=== PATIENT | female | born 1940 | race Caucasian/White ===

== ENCOUNTER → 2018-09-30 | Outpatient (CLI) | payer MEDICARE ==
[~2018-09-30] MED LIST: FENTANYL CITRATE/PF 100MCG/2 ML INJ ONE; GELATIN SPONGE 12-7MM ONE; LIDOCAINE HCL 1% LOCAL INJ 20 ML VIAL ONE; LOVASTATIN20 MG PO; MIDAZOLAM HCL 2 MG/2 ML VIAL ONE; PAROXETINE HCL20 MG PO; XANAX1 MG PO
[2018-09-30 09:23] LABS: INR 0.92; PROTHROMBIN TIME 12.9 seconds (11.9-14.5)
[2018-09-30 09:24] LABS: PARTIAL THROMBOPLASTIN TIME 31.4 seconds (23.8-35.5)
--- NOTE | 2018-10-01 09:47 | Diagnostic Imaging Report ---
EXAM: CT Chest without contrast INDICATION: Pulmonary nodules. COMPARISON: Recent outside hospital CT Abdomen/Pelvis renal protocol reportedly from 09/2018 was not available for review at the time of this dictation. TECHNIQUE: Chest was scanned utilizing a multidetector helical scanner from the lung apex through the level of the adrenal glands without administration of IV contrast. Coronal and sagittal reformations were obtained. Routine protocol was performed. RADIATION DOSE: Total DLP: 545.1 mGy*cm Dose modulation, iterative reconstruction, and/or weight based adjustment of the mA/kV was utilized to reduce the radiation dose to as low as reasonably achievable. COMPLICATIONS: None FINDINGS: LINES/ TUBES: None. LUNGS AND AIRWAYS: The central airways are patent. There is biapical pleural-parenchymal opacity, consistent with prior granulomatous disease. There are numerous bilateral pulmonary nodules which are predominately lower lung and peripheral predominant. The largest include a 3.7 cm left lower lobe mass on series 3, image 84; a 1.8 cm nodule in the lingula on image 71, a 1.5 cm left lower lobe nodule on image 64, a 0.7 cm nodule in the right upper lobe on image 48, and a 1.7 cm nodule in the right lower lobe on image 96. Mixed solid and groundglass nodular opacities in the right lower lobe, for example measuring up to 1.5 cm on series 3, image 65. PLEURA: The pleural spaces are clear. HEART AND MEDIASTINUM: The thyroid gland is normal. Mildly enlarged paratracheal lymph node measuring up to 1.1 cm on series 2, image 49 and mildly prominent 0.7 cm AP window lymph node on image 44. Mild cardiomegaly. No pericardial effusion. UPPER ABDOMEN: Limited non-contrast views of the upper abdomen. There are 2 exophytic left renal lesions, measuring up to 1.2 cm (series 2, image 117; 16 HU) in the upper pole laterally, as well as a 1 cm exophytic posterior mid pole lesion (image 122; 25 HU). Right hepatic lobe cysts. Calcified hepatic granuloma. BONES: No acute osseous abnormality. No suspicious lytic or blastic lesions SOFT TISSUES: Unremarkable. IMPRESSION: Multiple bilateral pulmonary nodules and left lower lobe pulmonary mass. Findings are highly suspicious for malignancy, whether metastatic disease or a primarily multifocal lung malignancy. Recommend biopsy for further evaluation. Mildly enlarged paratracheal lymph node which may be metastatic or reactive. Two left renal soft tissue lesions are indeterminate. Please correlate with outside hospital renal protocol CT. Note is made of planned renal mass biopsy. Signed by: Dr. Saritha Bocanegra MD on 10/01/2018 9:43 AM
== END ==
LOC: CT 08:20
PROVIDERS: ATTEND Urology
DX: D30.00 Benign neoplasm of unspecified kidney (principal); R91.8 Other nonspecific abnormal finding of lung field
CPT/HCPCS: 10009; 36415; 50200; 71250; 85049; 85610; 85730; 88172; 88173; 88305; J2001; J2250; 88112; 99152; 99153

== ENCOUNTER → 2018-10-07 | Outpatient (CLI) | payer MEDICARE ==
--- NOTE | 2018-10-07 11:17 | Diagnostic Imaging Report ---
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 The patient's heart rate and pulse oximetry were continuously monitored by the interventional radiology nurse. Blood pressure was monitored at 5 minute intervals. Total sedation time: 40 minutes Additional Medications: Lidocaine 1% for local anesthesia Estimated blood loss: Minimal Blood products administered: None Specimens: Core biopsy specimens x5 Implants: None Complications: No immediate Condition at completion: Stable Disposition: Radiology holding DISCUSSION: Informed consent was obtained and documented in the medical record after discussion of risks and benefits. The patient was placed in the prone position on the CT couch. A marker grid were placed over the right and left hemithorax. Imaged CT evaluation of the chest was performed, confirming a suitable percutaneous approach to the left lower lobe pulmonary nodule. The overlying skin was prepped and draped in the standard sterile fashion. 1% lidocaine was infiltrated into the skin and subcutaneous tissues for local anesthesia. Then, under intermittent CT guidance, a 16-gauge needle guide was advanced to the periphery of the nodule. Subsequently, an 18-gauge, 2 cm throw core biopsy apparatus was advanced coaxially through the needle guide and deployed, with limited CT evaluation confirming position of the trough of the biopsy needle within the nodule. A core specimen was then obtained and submitted to on-site pathology personnel by touch prep, with confirmation of intralesional location. An additional 4 core biopsy specimens were obtained and placed in formalin for histologic analysis. At the conclusion of sampling, 3 cc of autologous blood were injected through the needle guide as it was removed, and a sterile, occlusive dressing was applied. Limited postprocedure CT showed no pneumothorax and a minimal amount of perilesional hemorrhage. The patient tolerated the procedure well without immediate complication. FINDINGS: Bilateral pulmonary nodules. IMPRESSION: Successful CT-guided core biopsy of a left lower lobe pulmonary nodule without immediate complication. Serial chest radiographs will be obtained to assess for development of delayed iatrogenic pneumothorax. Signed by: Dr. Demetri Robb M.D. on 10/07/2018 11:14 AM
--- NOTE | 2018-10-07 11:40 | Diagnostic Imaging Report ---
Examination: Single AP view of the chest. COMPARISON: CT chest 09/30/2018 INDICATION: Status post left lung biopsy DISCUSSION: The lungs are well-inflated. No airspace consolidation or pneumothorax. Cardiomediastinal contour and pulmonary vasculature are within normal limits for portable, AP technique. No acute osseous abnormality. Multiple surgical clips along the left hemidiaphragm and left upper quadrant partially visualized. IMPRESSION: No pneumothorax status post left lung biopsy. Signed by: Dr. Demetri Robb M.D. on 10/07/2018 11:37 AM
--- NOTE | 2018-10-07 14:01 | Diagnostic Imaging Report ---
Examination: Single AP view of the chest. COMPARISON: 10/07/2018 at 1111 hours INDICATION: Post left lung biopsy DISCUSSION: See impression IMPRESSION: No left pneumothorax status post percutaneous biopsy. Bilateral pulmonary nodules described on CT scan of the chest 09/30/2018 are not readily identified by plain film. Signed by: Dr. Demetri Robb M.D. on 10/07/2018 1:57 PM
== END ==
LOC: CT 07:51
PROVIDERS: ATTEND Urology
DX: D30.00 Benign neoplasm of unspecified kidney (principal); R91.8 Other nonspecific abnormal finding of lung field; K57.30 Diverticulosis of large intestine without perforation or abscess without bleeding; K76.0 Fatty (change of) liver, not elsewhere classified; K43.9 Ventral hernia without obstruction or gangrene
CPT/HCPCS: 32405; 71045; 77012; 88172; 88173; 88305; J2001; J2250; 99152; 99153

== ENCOUNTER → 2018-11-17 | Outpatient (CLI) | payer MEDICARE ==
[~2018-11-17] MED LIST changes: -GELATIN SPONGE 12-7MM ONE; -LIDOCAINE HCL 1% LOCAL INJ 20 ML VIAL ONE
[2018-11-17 08:51] LABS: INR 0.91; PROTHROMBIN TIME 12.7 seconds (11.9-14.5)
[2018-11-17 08:52] LABS: PARTIAL THROMBOPLASTIN TIME 38.3 seconds (23.8-35.5)
--- NOTE | 2018-11-17 12:27 | Diagnostic Imaging Report ---
PROCEDURE: Ultrasound-guided focal left renal mass biopsy Procedural Personnel Attending physician(s): Vince Harrison MD Pre-procedure diagnosis: Left renal mass Post-procedure diagnosis: Same Indication: Left renal mass, prior biopsy inconclusive Previous biopsy of same target (QCDR): Yes- repeat biopsy due to sample inadequacy from prior biopsy at this institution Additional clinical history: None Complications: No immediate complications. IMPRESSION: Ultrasound-guided biopsy of left renal exophytic mass. Plan: Specimen(s) sent for evaluation. PROCEDURE SUMMARY: - Percutaneous US-guided core needle and fine needle aspiration biopsy biopsy - Additional procedure(s): None PROCEDURE DETAILS: Pre-procedure Reference imaging for biopsy target: CT Consent: Informed consent for the procedure including risks, benefits and alternatives was obtained and time-out was performed prior to the procedure. Preparation: The site was prepared and draped using maximal sterile barrier technique including cutaneous antisepsis. Anesthesia/sedation Level of anesthesia/sedation: Moderate sedation (conscious sedation) Anesthesia/sedation administered by: Independent trained observer under attending supervision with continuous monitoring of the patient?s level of consciousness and physiologic status Total intra-service sedation time (minutes): 30 Imaging prior to biopsy The patient was positioned prone. Initial ultrasound was performed. Biopsy target: - Maximal diameter (cm): 3 - Location: left kidney, exophytic mass Other findings: None Biopsy Local anesthesia was administered. Under US guidance, the biopsy needle was advanced to the target and biopsy was performed. Coaxial needle: 17 gauge Core needle biopsy device: 18 gauge [email or web address] evolution Core needle size: 18g x 15cm Number of core specimens: 2 Fine needle aspiration device: Chiba needle Fine needle size: 22g x 15cm Number of FNA specimens: 4 On-site biopsy touch preparation: No Additional sampling recommendations: None Preliminary assessment of sample adequacy: Adequate Needle removal The biopsy needle was removed and a sterile dressing was applied. Tract embolization: Gelfoam slurry Imaging following biopsy Immediate post-biopsy ultrasound was performed. Post-biopsy imaging findings: No hematoma. Additional Details Additional description of procedure: None Equipment details: None Specimens removed: Biopsy samples as detailed above Estimated blood loss (mL): Less than 10 Standardized report: [id number] Attestation Signer name: Vince Harrison MD I attest that I was present for the entire procedure. I reviewed the stored images and agree with the report as written. Signed by: Vince Harrison MD on 11/17/2018 12:24 PM
== END ==
LOC: US 07:27
PROVIDERS: ATTEND Urology
DX: D30.00 Benign neoplasm of unspecified kidney (principal); R91.8 Other nonspecific abnormal finding of lung field
CPT/HCPCS: 10005; 36415; 50200; 85049; 85610; 85730; 88112; 88305; J2250; 88172; 88173; 99152; 99153; J3010

== ENCOUNTER 2019-04-12 09:52 | Observation (INO) | payer MEDICARE ==
[~2019-04-12] VITALS: Ht 160 cm; Wt 88.5 kg
[~2019-04-12 09:52] MED LIST changes: -FENTANYL CITRATE/PF 100MCG/2 ML INJ ONE; -MIDAZOLAM HCL 2 MG/2 ML VIAL ONE
--- OUTSIDE RECORDS SUMMARY | 2019-04-12 09:55 | XMS REPORT ---
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 Allergies, Adverse Reactions, Alerts Allergy Name Allergy Type Status Severity Reaction(s) Onset Date Inactive Date Treating Clinician Comments nitrofurantoin DA Active SV 2018-02-15 00:00:00 nitrofurantoin DA Active MO 2017-03-18 00:00:00 Medications This patient has no known medications. Results Test Description Test Time Test Comments Text Results Atomic Results Result Comments - PET/CT TUMOR SK MIDTH 2018-12-22 15:23:00 FAX: Dewayne Belle MD [phone] [place]: St: PRE Name: DEIDRE YI [facility] : 1940 Age/S: 78/F Gina Castro Unit #: [id number] Loc: [place] [address] Phys: Dewayne Belle MD Acct: [id number] Dis Date: Status: PRE CLI PHONE #: [phone] Exam Date: 12/22/2018 1130 FAX #: [phone] Reason: C90.30 EXAMS: CPT CODE: [id number] PET/CT TUMOR SK BS MIDTH 86243 HISTORY: C90.30. COMPARISON: CT abdomen and pelvis from February 15, [address] chest from May 14, 2016 and January 21, 2016. PET/CT SCAN: 11.6 mCi of FDG administered. Images obtained from the skull base to the upper thighs 1 hour postinjection. Blood glucose level=87 mg/dL. HEAD AND NECK: Intense uptake within the brain parenchyma limited evaluation. Physiologic pharyngeal uptake. CHEST: Multiple stable bibasal lung nodules measuring up to 2 cm with SUV uptake ranging up to 1.8 are not suspicious. These were present going back to examination of January 2016. No chest wall uptake. No breast uptake. ABDOMEN: No liver or adrenal uptake. No pancreatic or splenic uptake. Excretion from both kidneys. No abnormal uptake. 1 cm lesion within the medial left upper pole without abnormal uptake. No bowel uptake. Left lateral spigelian hernia with noted again. Minimal excretion into the bowel. PELVIS: No pelvic pathologic adenopathy. Excretion into the urinary bladder. Excretion into the bowel. MUSCULOSKELETAL: No abnormal uptake. IMPRESSION: No abnormal uptake documented. at 1523 Reported and signed by: Greg Doss M.D. CC: Dewayne Belle MD Technologist: NEHA LOTT Trnscrd Date/Time/By: 12/22/2018 (6043) : By: [email or web address] Orig Print D/T: S: 12/22/2018 (0720) PAGE 1 Signed Report BIOPSY RENAL 2018-11-17 12:20:00 [place] [address] Patient Name: DEIRDE YI MR #: [id number] : 1940 Age/Sex: 78/F Req #: [id number] Adm Physician: Ordered by: ANNEMARIE SAINI MD Report #: [id number] Location: US Room/Bed: Procedure: [id number] IR/BIOPSY RENAL Exam Date: 11/17/18 Exam Time: 923 REPORT STATUS: Signed PROCEDURE: Ultrasound-guided focal left renal mass biopsy Procedural Personnel Attending physician(s): Chitra Velasquez MD Pre-procedure diagnosis: Left renal mass Post-procedure diagnosis: Same Indication: Left renal mass, prior biopsy inconclusive Previous biopsy of same target (QCDR): Yes- repeat biopsy due to sample inadequacy from prior biopsy at this institution Additional clinical history: None Complications: No immediate complications. IMPRESSION: Ultrasound-guided biopsy of left renal exophytic mass. Plan: Specimen(s) sent for evaluation. PROCEDURE SUMMARY: - Percutaneous US-guided core needle and fine needle aspiration biopsy biopsy - Additional procedure(s): None PROCEDURE DETAILS: Pre-procedure Reference imaging for biopsy target: CT Consent: Informed consent for the procedure including risks, benefits and alternatives was obtained and time-out was performed prior to the procedure. Preparation: The site was prepared and draped using maximal sterile barrier technique including cutaneous antisepsis. Anesthesia/sedation Level of anesthesia/sedation: Moderate sedation (conscious sedation) Anesthesia/sedation administered by: Independent trained observer under attending supervision with continuous monitoring of the patient?s level of consciousness and physiologic status Total intra-service sedation time (minutes): 30 Imaging prior to biopsy The patient was positioned prone. Initial ultrasound was performed. Biopsy target: - Maximal diameter (cm): 3 - Location: left kidney, exophytic mass Other findings: None Biopsy Local anesthesia was administered. Under US guidance, the biopsy needle was advanced to the target and biopsy was performed. Coaxial needle: 17 gauge Core needle biopsy device: 18 gauge Oviceversa Core needle size: 18g x 15cm Number of core specimens: 2 Fine needle aspiration device: Chiba needle Fine needle size: 22g x 15cm Number of FNA specimens: 4 On-site biopsy touch preparation: No Additional sampling recommendations: None Preliminary assessment of sample adequacy: Adequate Needle removal The biopsy needle was removed and a sterile dressing was applied. Tract embolization: Gelfoam slurry Imaging following biopsy Immediate post-biopsy ultrasound was performed. Post-biopsy imaging findings: No hematoma. Additional Details Additional description of procedure: None Equipment details: None Specimens removed: Biopsy samples as detailed above Estimated blood loss (mL): Less than 10 Standardized report: [id number] Attestation Signer name: Chitra Velasquez MD I attest that I was present for the entire procedure. I reviewed the stored images and agree with the report as written. Signed by: Chitra Velasquez MD on 11/17/2018 12:24 PM Dictated By: CHITRA VELASQUEZ MD 1224 Transcribed By: CASEY on 11/17/18 1224 COPY TO: ANNEMARIE SAINI MD CHEST SINGLE (NOT PORTABLE) 2018-10-07 13:56:00 [place] [address] Patient Name: DEIDRE YI MR #: [id number] : 1940 Age/Sex: 78/F Req #: [id number] Adm Physician: Ordered by: PERRI GUNN MD Report #: [id number] Location: CT Room/Bed: Procedure: [id number] DX/CHEST SINGLE (NOT PORTABLE) Exam Date: 10/07/18 Exam Time: 1030 REPORT STATUS: Signed Examination: Single AP view of the chest. COMPARISON: 10/07/2018 at 1111 hours INDICATION: Post left lung biopsy DISCUSSION: See impression IMPRESSION: No left pneumothorax status post percutaneous biopsy. Bilateral pulmonary nodules described on CT scan of the chest 09/30/2018 are not readily identified by plain film. Signed by: Dr. Perri Gunn M.D. on 10/07/2018 1:57 PM Dictated By: PERRI GUNN MD 6813 Transcribed By: CASEY on 10/07/18 8427 COPY TO: PERRI GUNN MD CHEST SINGLE (NOT PORTABLE) 2018-10-07 11:35:00 [place] [address] Patient Name: DEIDRE YI MR #: [id number] : 1940 Age/Sex: 78/F Req #: [id number] Adm Physician: Ordered by: PERRI GUNN MD Report #: [id number] Location: CT Room/Bed: Procedure: [id number] DX/CHEST SINGLE (NOT PORTABLE) Exam Date: 10/07/18 Exam Time: 1115 REPORT STATUS: Signed Examination: Single AP view of the chest. COMPARISON: CT chest 09/30/2018 INDICATION: Status post left lung biopsy DISCUSSION: The lungs are well-inflated. No airspace consolidation or pneumothorax. Cardiomediastinal contour and pulmonary vasculature are within normal limits for portable, AP technique. No acute osseous abnormality. Multiple surgical clips along the left hemidiaphragm and left upper quadrant partially visualized. IMPRESSION: No pneumothorax status post left lung biopsy. Signed by: Dr. Perri Gunn M.D. on 10/07/2018 11:37 AM Dictated By: PERRI GUNN MD 1137 Transcribed By: CASEY on 10/07/18 1137 COPY TO: PERRI GUNN MD MOD SEDATE ADD 15 MIN<5YRS 2018-10-07 11:09:00 [place] [id number] [place] [id number] Patient Name: DEIDRE YI MR #: [id number] : 1940 Age/Sex: 78/F Req #: [id number] Adm Physician: Ordered by: ANNEMARIE SAINI MD Report #: [id number] Location: CT Room/Bed: Procedure: [id number] CT/MOD SEDATE ADD 15 MIN<5YRS Exam Date: 10/07/18 Exam Time: 955 REPORT STATUS: Signed Date and Time: 10/07/2018 Procedure: CT-guided core biopsy of a left lower lobe pulmonary nodule lowerator operator: Dr. Gunn Pre-operative diagnosis: Bilateral pulmonary nodules Post-operative diagnosis: Bilateral pulmonary nodules Conscious Sedation: Versed 1 mg and Fentanyl 50 mcg. The patient's heart rate and pulse oximetry were continuously monitored by the interventional radiology nurse. Blood pressure was monitored at 5 minute intervals. Total sedation time: 40 minutes Additional Medications: Lidocaine 1% for local anesthesia Estimated blood loss: Minimal Blood products administered: None Specimens: Core biopsy specimens x5 Implants: None Complications: No immediate Condition at completion: Stable Disposition: Radiology holding DISCUSSION: Informed consent was obtained and documented in the medical record after discussion of risks and benefits. The patient was placed in the prone position on the CT couch. A marker grid were placed over the right and left hemithorax. Imaged CT evaluation of the chest was performed, confirming a suitable percutaneous approach to the left lower lobe pulmonary nodule. The overlying skin was prepped and draped in the standard sterile fashion. 1% lidocaine was infiltrated into the skin and subcutaneous tissues for local anesthesia. Then, under intermittent CT guidance, a 16-gauge needle guide was advanced to the periphery of the nodule. Subsequently, an 18-gauge, 2 cm throw core biopsy apparatus was advanced coaxially through the needle guide and deployed, with limited CT evaluation confirming position of the trough of the biopsy needle within the nodule. A core specimen was then obtained and submitted to on-site pathology personnel by touch prep, with confirmation of intralesional location. An additional 4 core biopsy specimens were obtained and placed in formalin for histologic analysis. At the conclusion of sampling, 3 cc of autologous blood were injected through the needle guide as it was removed, and a sterile, occlusive dressing was applied. Limited postprocedure CT showed no pneumothorax and a minimal amount of perilesional hemorrhage. The patient tolerated the procedure well without immediate complication. FINDINGS: Bilateral pulmonary nodules. IMPRESSION: Successful CT- guided core biopsy of a left lower lobe pulmonary nodule without immediate complication. Serial chest radiographs will be obtained to assess for development of delayed iatrogenic pneumothorax. Signed by: Dr. Perri Gunn M.D. on 10/07/2018 11:14 AM Dictated By: PERRI GUNN MD 1114 Transcribed By: CASEY on 10/07/18 1114 COPY TO: ANNEMARIE SAINI MD, MD SEDATE INITIAL > 5 YRS 2018-10-07 11:09:00 [place] [address] Patient Name: DEIDRE YI MR #: [id number] : 1940 Age/Sex: 78/F Req #: [id number] Adm Physician: Ordered by: ANNEMARIE SAINI MD Report #: [id number] Location: [place] Room/Bed: Procedure: [id number] CT/ SEDATE INITIAL > 5 YRS Exam Date: 10/07/18 Exam Time: 939 REPORT STATUS: Signed Date and Time: 10/07/2018 Procedure: CT-guided core biopsy of a left lower lobe pulmonary nodule lowerator operator: Dr. Gunn Pre-operative diagnosis: Bilateral pulmonary nodules Post-operative diagnosis: Bilateral pulmonary nodules Conscious Sedation: Versed 1 mg and Fentanyl 50 mcg. The patient's heart rate and pulse oximetry were continuously monitored by the interventional radiology nurse. Blood pressure was monitored at 5 minute intervals. Total sedation time: 40 minutes Additional Medications: Lidocaine 1% for local anesthesia Estimated blood loss: Minimal Blood products administered: None Specimens: Core biopsy specimens x5 Implants: None Complications: No immediate Condition at completion: Stable Disposition: Radiology holding DISCUSSION: Informed consent was obtained and documented in the medical record after discussion of risks and benefits. The patient was placed in the prone position on the CT couch. A marker grid were placed over the right and left hemithorax. Imaged CT evaluation of the chest was performed, confirming a suitable percutaneous approach to the left lower lobe pulmonary nodule. The overlying skin was prepped and draped in the standard sterile fashion. 1% lidocaine was infiltrated into the skin and subcutaneous tissues for local anesthesia. Then, under intermittent CT guidance, a 16-gauge needle guide was advanced to the periphery of the nodule. Subsequently, an 18-gauge, 2 cm throw core biopsy apparatus was advanced coaxially through the needle guide and deployed, with limited CT evaluation confirming position of the trough of the biopsy needle within the nodule. A core specimen was then obtained and submitted to on-site pathology personnel by touch prep, with confirmation of intralesional location. An additional 4 core biopsy specimens were obtained and placed in formalin for histologic analysis. At the conclusion of sampling, 3 cc of autologous blood were injected through the needle guide as it was removed, and a sterile, occlusive dressing was applied. Limited postprocedure CT showed no pneumothorax and a minimal amount of perilesional hemorrhage. The patient tolerated the procedure well without immediate complication. FINDINGS: Bilateral pulmonary nodules. IMPRESSION: Successful CT- guided core biopsy of a left lower lobe pulmonary nodule without immediate complication. Serial chest radiographs will be obtained to assess for development of delayed iatrogenic pneumothorax. Signed by: Dr. Perri Gunn M.D. on 10/07/2018 11:14 AM Dictated By: PERRI GUNN MD 13 Transcribed By: CASEY on 10/07/181113 COPY TO: ANNEMARIE SAINI MD CT GUIDED BIOPSY/ASPIR/INJ/VICKIE 2018-10-07 11:09:00 [place] [address] Patient Name: DEIDRE YI MR #: [id number] : 1940 Age/Sex: 78/F Req #: [id number] Adm Physician: Ordered by: ANNEMARIE SAINI MD Report #: [id number] Location: CT Room/Bed: Procedure: CT/CT GUIDED BIOPSY/ASPIR/INJ/VICKIE Exam Date: 10/07/18 Exam Time: 929 REPORT STATUS: Signed Date and Time: 10/07/2018 Procedure: CT-guided core biopsy of a left lower lobe pulmonary nodule lowerator operator: Dr. Gunn Pre-operative diagnosis: Bilateral pulmonary nodules Post-operative diagnosis: Bilateral pulmonary nodules Conscious Sedation: Versed 1 mg and Fentanyl 50 mcg. The patient's heart rate and pulse oximetry were continuously monitored by the interventional radiology nurse. Blood pressure was monitored at 5 minute intervals. Total sedation time: 40 minutes Additional Medications: Lidocaine 1% for local anesthesia Estimated blood loss: Minimal Blood products administered: None Specimens: Core biopsy specimens x5 Implants: None Complications: No immediate Condition at completion: Stable Disposition: Radiology holding DISCUSSION: Informed consent was obtained and documented in the medical record after discussion of risks and benefits. The patient was placed in the prone position on the CT couch. A marker grid were placed over the right and left hemithorax. Imaged CT evaluation of the chest was performed, confirming a suitable percutaneous approach to the left lower lobe pulmonary nodule. The overlying skin was prepped and draped in the standard sterile fashion. 1% lidocaine was infiltrated into the skin and subcutaneous tissues for local anesthesia. Then, under intermittent CT guidance, a 16-gauge needle guide was advanced to the periphery of the nodule. Subsequently, an 18-gauge, 2 cm throw core biopsy apparatus was advanced coaxially through the needle guide and deployed, with limited CT evaluation confirming position of the trough of the biopsy needle within the nodule. A core specimen was then obtained and submitted to on-site pathology personnel by touch prep, with confirmation of intralesional location. An additional 4 core biopsy specimens were obtained and placed in formalin for histologic analysis. At the conclusion of sampling, 3 cc of autologous blood were injected through the needle guide as it was removed, and a sterile, occlusive dressing was applied. Limited postprocedure CT showed no pneumothorax and a minimal amount of perilesional hemorrhage. The patient tolerated the procedure well without immediate complication. FINDINGS: Bilateral pulmonary nodules. IMPRESSION: Successful CT- guided core biopsy of a left lower lobe pulmonary nodule without immediate com plication. Serial chest radiographs will be obtained to assess for development of delayed iatrogenic pneumothorax. Signed by: Dr. Perri Gunn M.D. on 10/07/2018 11:14 AM Dictated By: PERRI GUNN MD 1114 Transcribed By: CASEY on 10/07/18 1114 COPY TO: ANNEMARIE SAINI MD BIOPSY LUNG 2018-10-07 11:09:00 [place] [address] Patient Name: DEIDRE YI MR #: [id number] : 1940 Age/Sex: 78/F Req #: [id number] Adm Physician: Ordered by: ANNEMARIE SAINI MD Report #: [id number] Location: CT Room/Bed: Procedure: [id number] IR/BIOPSY LUNG Exam Date: 10/07/18 Exam Time: 929 REPORT STATUS: Signed Date and Time: 10/07/2018 Procedure: CT-guided core biopsy of a left lower lobe pulmonary nodule lowerator operator: Dr. Gunn Pre- operative diagnosis: Bilateral pulmonary nodules Post-operative diagnosis: Bilateral pulmonary nodules Conscious Sedation: Versed 1 mg and Fentanyl 50 mcg. The patient's heart rate and pulse oximetry were continuously monitored by the interventional radiology nurse. Blood pressure was monitored at 5 minute intervals. Total sedation time: 40 minutes Additional Medications: Lidocaine 1% for local anesthesia Estimated blood loss: Minimal Blood products administered: None Specimens: Core biopsy specimens x5 Implants: None Complications: No immediate Condition at completion: Stable Disposition: Radiology holding DISCUSSION: Informed consent was obtained and documented in the medical record after discussion of risks and benefits. The patient was placed in the prone position on the CT couch. A marker grid were placed over the right and left hemithorax. Imaged CT evaluati on of the chest was performed, confirming a suitable percutaneous approach to the left lower lobe pulmonary nodule. The overlying skin was prepped and draped in the standard sterile fashion. 1% lidocaine was infiltrated into the skin and subcutaneous tissues for local anesthesia. Then, under intermittent CT guidance, a 16-gauge needle guide was advanced to the periphery of the nodule. Subsequently, an 18-gauge, 2 cm throw core biopsy apparatus was advanced coaxially through the needle guide and deployed, with limited CT evaluation confirming position of the trough of the biopsy needle within the nodule. A core specimen was then obtained and submitted to on-site pathology personnel by touch prep, with confirmation of intralesional location. An additional 4 core biopsy specimens were obtained and placed in formalin for histologic analysis. At the conclusion of sampling, 3 cc of autologous blood were injected through the needle guide as it was removed, and a sterile, occlusive dressing was applied. Limited postprocedure CT showed no pneumothorax and a minimal amount of perilesional hemorrhage. The patient tolerated the procedure well without immediate complication. FINDINGS: Bilateral pulmonary nodules. IMPRESSION: Successful CT- guided core biopsy of a left lower lobe pulmonary nodule without immediate complication. Serial chest radiographs will be obtained to assess for development of delayed iatrogenic pneumothorax. Signed by: Dr. Perri Gunn M.D. on 10/07/2018 11:14 AM Dictated By: PERRI GUNN MD El ectronically Signed By: PERRI GUNN MD on 10/07/18 1114 Transcribed By: CASEY on 10/07/18 1114 COPY TO: ANNEMARIE SAINI MD CT CHEST WO 2018-09-30 15:17:00 [place] [address] Patient Name: DEIDRE YI MR #: [id number] : 1940 Age/Sex: 78/F Req #: [id number] Adm Physician: Ordered by: ANNEMARIE SAINI MD Report #: [id number] Location: CT Room/Bed: Procedure: [id number] CT/CT CHEST WO Exam Date: 09/30/18 Exam Time: 1100 REPORT STATUS: Signed EXAM: CT Chest without contrast INDICATION: Pulmonary no dules. COMPARISON: Recent outside hospital CT Abdomen/Pelvis renal protocol reportedly from 09/2018 was not available for review at the time of this dictation. TECHNIQUE: Chest was scanned utilizing a multidetector helical scanner from the lung apex through the level of the adrenal glands without administration of IV contrast. Coronal and sagittal reformations were obtained. Routine protocol was performed. RADIATION DOSE: Total DLP: 545.1 mGy*cm Dose modulation, iterative reconstruction, and/or weight based adjustment of the mA/kV was utilized to reduce the radiation dose to as low as reasonably achievable. COMPLICATIONS: None FINDINGS: LINES/ TUBES: None. LUNGS AND AIRWAYS: The central airways are patent. There is biapical pleural-parenchymal opacity, consistent with prior granulomatous disease. There are numerous bilateral pulmonary nodules which are predominately lower lung and peripheral predominant. The largest include a 3.7 cm left lower lobe mass on series 3, image 84; a 1.8 cm nodule in the lingula on image 71, a 1.5 cm left lower lobe nodule on image 64, a 0.7 cm nodule in the right upper lobe on image 48, and a 1.7 cm nodule in the right lower lobe on image 96. Mixed solid and groundglass nodular opacities in the right lower lobe, for example measuring up to 1.5 cm on series 3, image 65. PLEURA: The pleural spaces are clear. HEART AND MEDIASTINUM: The thyroid gland is normal. Mildly enlarged paratracheal lymph node measuring up to 1.1 cm on series 2, image 49 and mildly prominent 0.7 cm AP window lymph node on image 44. Mild cardiomegaly. No pericardial effusion. UPPER ABDOMEN: Limited non-contrast views of the upper abdomen. There are 2 exophytic left renal lesions, measuring up to 1.2 cm (series 2, image 117; 16 HU) in the upper pole laterally, as well as a 1 cm exophytic posterior mid pole lesion (image 122; 25 HU). Right hepatic lobe cysts. Calcified hepatic granuloma. BONES: No acute osseous abnormality. No suspicious lytic or blastic lesions SOFT TISSUES: Unremarkable. IMPRESSION: Multiple bilateral pulmonary nodules and left lower lobe pulmonary mass. Findings are highly suspicious for malignancy, whether metastatic disease or a primarily multifocal lung malignancy. Recommend biopsy for further evaluation. Mildly enlarged paratracheal lymph node which may be metastatic or reactive. Two left renal soft tissue lesions are indeterminate. Please correlate with outside hospital renal protocol CT. Note is made of planned renal mass biopsy. Signed by: Dr. Alejandro Gudino MD on 10/01/2018 9:43 AM Dictated By: ALEJANDRO GUDINO MD Transcribed By: CASEY on 10/01/18942 COPY TO: ANNEMARIE SAINI MD MOD SEDATE ADD 15 MIN<5YRS 2018-09-30 13:54:[address], [place] [address] Patient Name: DEIDRE YI MR #: [id number] : 1940 [facility]: 78[id number] #: [id number] Adm Physician: Ordered by: ALEJANDRO GUDINO MD Report #: [id number] Location: [place] Room/Bed: Procedure: [id number] CT/MOD SEDATE ADD 15 MIN<5YRS Exam Date: 09/30/18 Exam Time: 1153 REPORT STATUS: Signed Ultrasound and CT guided fine needle aspirate and core biopsy of left renal lesion Comparison: None. Consent: The nature of the procedure, including its risks, benefits and alternatives was explained to the patient who understood and gave informed, written consent. Operators: Alejandro Gudino MD Anesthesia: Intravenous conscious sedation was administered by radiology nursing. Continuous hemodynamic and respiratory monitoring was performed, including the use of pulse oximetry. Total sedation time: 58 minutes Specimens: 5 targeted core biopsies of left renal mass, 1 fine needle aspirate of left renal mass. Estimated blood loss: No significant blood loss. Medications: 10 cc of 1% subcutaneous lidocaine Fentanyl and Versed per nursing administration record TECHNIQUE: The patient was placed in the prone position. Ultrasound demonstrated a satisfactory path to the left upper/mid pole exophytic solid lesion. The skin of the left back was marked, prepped, draped and anesthetized with 1% lidocaine. With ultrasound guidance, a 16 gauge introducer needle was inserted into the left renal lesion. Subsequently, a single fine needle aspirate was obtained with a 22 gauge needle. At this point, air prevented visualization of the small lesion by ultrasound. CT confirmed satisfactory introducer positioning. Subsequently, a total of 5 core biopsy samples were obtained with an 18 gauge biopsy device and samples were provided to pathology for adequacy check. Gelfoam embolization of the tract was performed and the introducer needle was removed. Sterile bandage was placed. Samples were sent to pathology. The patient tolerated the procedure well. IMPRESSION: Ultrasound guided targeted FNA and core biopsies of left renal lesion as above. Signed by: Dr. Alejandro Gudino MD on 10/02/2018 8:36 AM Dictated By: ALEJANDRO GUDINO MD 5 Transcribed By: CASEY on 10/02/18835 COPY TO: ALEJANDRO GUDINO MD MOD SEDATE ADD 15 MIN<5YRS 2018-09-30 13:54:00 [place] [address] Patient Name: DEIDRE YI MR #: [id number] : 1940 Age/Sex: 78/F Req #: [id number] Adm Physician: Ordered by: ALEJANDRO GUDINO MD Report #: [id number] Location: [place] Room/Bed: Procedure: [id number] CT/MOD SEDATE ADD 15 MIN<5YRS Exam Date: 09/30/18 Exam Time: 1137 REPORT STATUS: Signed Ultrasound and CT guided fine needle aspirate and core biopsy of left renal lesion Comparison: None. Consent: The nature of the procedure, including its risks, benefits and alternatives was explained to the patient who understood and gave informed, written consent. Operators: Alejandro Gudino MD Anesthesia: Intravenous conscious sedation was administered by radiology nursing. Continuous hemodynamic and respiratory monitoring was performed, including the use of pulse oximetry. Total sedation time: 58 minutes Specimens: 5 targeted core biopsies of left renal mass, 1 fine needle aspirate of left renal mass. Estimated blood loss: No significant blood loss. Medications: 10 cc of 1% subcutaneous lidocaine Fentanyl and Versed per nursing administration record TECHNIQUE: The patient was placed in the prone position. Ultrasound demonstrated a satisfactory path to the left upper/mid pole exophytic solid lesion. The skin of the left back was marked, prepped, draped and anesthetized with 1% lidocaine. With ultrasound guidance, a 16 gauge introducer needle was inserted into the left renal lesion. Subsequently, a single fine needle aspirate was obtained with a 22 gauge needle. At this point, air prevented visualization of the small lesion by ultrasound. CT confirmed satisfactory introducer positioning. Subsequently, a total of 5 core biopsy samples were obtained with an 18 gauge biopsy device and samples were provided to pathology for adequacy check. Gelfoam embolization of the tract was performed and the introducer needle was removed. Sterile bandage was placed. Samples were sent to pathology. The patient tolerated the procedure well. IMPRESSION: Ultrasound guided targeted FNA and core biopsies of left renal lesion as above. Signed by: Dr. Alejandro Gudino MD on 10/02/2018 8:36 AM Dictated By: ALEJANDRO GUDINO MD 5 Transcribed By: CASEY on 10/02/18835 COPY TO: ALEJANDRO GUDINO MD MOD SEDATE ADD 15 MIN<5YRS 2018-09-30 13:54:00 [place] [address] Patient Name: DEIDRE YI MR #: [id number] : 1940 Age/Sex: 78/F Req #: [id number] Adm Physician: Ordered by: ALEJANDRO GUDINO MD Report #: [id number] Location: [place] Room/Bed: Procedure: [id number] CT/MOD SEDATE ADD 15 MIN<5YRS Exam Date: 09/30/18 Exam Time: 1121 REPORT STATUS: Signed Ultrasound and CT guided fine needle aspirate and core biopsy of left renal lesion Comparison: None. Consent: The nature of the procedure, including its risks, benefits and alternatives was explained to the patient who understood and gave informed, written consent. Operators: Alejandro Gudino MD Anesthesia: Intravenous conscious sedation was administered by radiology nursing. Continuous hemodynamic and respiratory monitoring was performed, including the use of pulse oximetry. Total sedation time: 58 minutes Specimens: 5 targeted core biopsies of left renal mass, 1 fine needle aspirate of left renal mass. Estimated blood loss: No significant blood loss. Medications: 10 cc of 1% subcutaneous lidocaine Fentanyl and Versed per nursing administration record TECHNIQUE: The patient was placed in the prone position. Ultrasound demonstrated a satisfactory path to the left upper/mid pole exophytic solid lesion. The skin of the left back was marked, prepped, draped and anesthetized with 1% lidocaine. With ultrasound guidance, a 16 gauge introducer needle was inserted into the left renal lesion. Subsequently, a single fine needle aspirate was obtained with a 22 gauge needle. At this point, air prevented visualization of the small lesion by ultrasound. CT confirmed satisfactory introducer positioning. Subsequently, a total of 5 core biopsy samples were obtained with an 18 gauge biopsy device and samples were provided to pathology for adequacy check. Gelfoam embolization of the tract was performed and the introducer needle was removed. Sterile bandage was placed. Samples were sent to pathology. The patient tolerated the procedure well. IMPRESSION: Ultrasound guided targeted FNA and core biopsies of left renal lesion as above. Signed by: Dr. Alejandro Gudino MD on 10/02/2018 8:36 AM Dictated By: ALEJANDRO GUDINO MD Transcribed By: CASEY on 10/02/18835 COPY TO: ALEJANDRO GUDINO MD, MD SEDATE INITIAL > 5 YRS 2018-09-30 13:54:00 [place] [address] Patient Name: DEIDRE YI MR #: [id number] : 1940 Age/Sex: 78/F Req #: [id number] [facility] Physician: Ordered by: ALEJANDRO GUDINO MD Report #: [id number] Location: [place] Room/Bed: Procedure: [id number] CT/ SEDATE INITIAL > 5 YRS Exam Date: 09/30/18 Exam Time: 1105 REPORT STATUS: Signed Ultrasound and CT guided fine needle aspirate and core biopsy of left renal lesion Comparison: None. Consent: The nature of the procedure, including its risks, benefits and alternatives was explained to the patient who understood and gave informed, written consent. Operators: Alejandro Gudino MD Anesthesia: Intravenous conscious sedation was administered by radiology nursing. Continuous hemodynamic and respiratory monitoring was performed, including the use of pulse oximetry. Total sedation time: 58 minutes Specimens: 5 targeted core biopsies of left renal mass, 1 fine needle aspirate of left renal mass. Estimated blood loss: No significant blood loss. Medications: 10 cc of 1% subcutaneous lidocaine Fentanyl and Versed per nursing administration record TECHNIQUE: The patient was placed in the prone position. Ultrasound demonstrated a satisfactory path to the left upper/mid pole exophytic solid lesion. The skin of the left back was marked, prepped, draped and anesthetized with 1% lidocaine. With ultrasound guidance, a 16 gauge introducer needle was inserted into the left renal lesion. Subsequently, a single fine needle aspirate was obtained with a 22 gauge needle. At this point, air prevented visualization of the small lesion by ultrasound. CT confirmed satisfactory introducer positioning. Subsequently, a total of 5 core biopsy samples were obtained with an 18 gauge biopsy device and samples were provided to pathology for adequacy check. Gelfoam embolization of the tract was performed and the introducer needle was removed. Sterile bandage was placed. Samples were sent to pathology. The patient tolerated the procedure well. IMPRESSION: Ultrasound guided targeted FNA and core biopsies of left renal lesion as above. Signed by: Dr. Alejandro Gudino MD on 10/02/2018 8:36 AM Dictated By: ALEJANDRO GUDINO MD 5 Transcribed By: CASEY on 10/02/18835 COPY TO: ALEJANDRO GUDINO MD FNA CT GUIDED 1ST LESION 2018-09-30 13:54:00 [place] [address] Patient Name: DEIDRE YI MR #: [id number] : 1940 Age/Sex: 78/F Req #: [id number] Adm Physician: Ordered by: ANNEMARIE SAINI MD Report #: [id number] Location: CT Room/Bed: Procedure: [id number] IR/FNA CT GUIDED 1ST LESION Exam Date: 09/30/18 Exam Time: 1220 REPORT STATUS: Signed Ultrasound and CT guided fine needle aspirate and core biopsy of left renal lesion Comparison: None. Consent: The nature of the procedure, including its risks, benefits and alternatives was explained to the patient who understood and gave informed, written consent. Operators: Alejandro Gudino MD Anesthesia: Intravenous conscious sedation was administered by radiology nursing. Continuous hemodynamic and respiratory monitoring was performed, including the use of pulse oximetry. Total sedation time: 58 minutes Specimens: 5 targeted core biopsies of left renal mass, 1 fine needle aspirate of left renal mass. Estimated blood loss: No significant blood loss. Medications: 10 cc of 1% subcutaneous lidocaine Fentanyl and Versed per nursing administration record TECHNIQUE: The patient was placed in the prone position. Ultrasound demonstrated a satisfactory path to the left upper/mid pole exophytic solid lesion. The skin of the left back was marked, prepped, draped and anesthetized with 1% lidocaine. With ultrasound guidance, a 16 gauge introducer needle was inserted into the left renal lesion. Subsequently, a single fine needle aspirate was obtained with a 22 gauge needle. At this point, air prevented visualization of the small lesion by ultrasound. CT confirmed satisfactory introducer positioning. Subsequently, a total of 5 core biopsy samples were obtained with an 18 gauge biopsy device and samples were provided to pathology for adequacy check. Gelfoam embolization of the tract was performed and the introducer needle was removed. Sterile bandage was placed. Samples were sent to pathology. The patient tolerated the procedure well. IMPRESSION: Ultrasound guided targeted FNA and core biopsies of left renal lesion as above. Signed by: Dr. Alejandro Gudino MD on 10/02/2018 8:36 AM Dictated By: ALEJANDRO GUDINO MD 5 Transcribed By: CASEY on 10/02/18835 COPY TO: ANNEMARIE SAINI MD BIOPSY RENAL 2018-09-30 13:54:00 [place] [address] Patient Name: DEIDRE YI MR #: [id number] : 1940 Age/Sex: 78/F Req #: [id number] Adm Physician: Ordered by: ANNEMARIE SAINI MD Report #: [id number] Location: [place] Room/Bed: Procedure: [id number] IR/BIOPSY RENAL Exam Date: 09/30/18 Exam Time: 1220 REPORT STATUS: Signed Ultrasound and CT guided fine needle aspirate and core biopsy of left renal lesion Comparison: None. Consent: The nature of the procedure, including its risks, benefits and alternatives was explained to the patient who understood and gave informed, written consent. Operators: Alejandro Gudino MD Anesthesia: Intravenous conscious sedation was administered by radiology nursing. Continuous hemodynamic and respiratory monitoring was performed, including the use of pulse oximetry. Total sedation time: 58 minutes Specimens: 5 targeted core biopsies of left renal mass, 1 fine needle aspirate of left renal mass. Estimated blood loss: No significant blood loss. Medications: 10 cc of 1% subcutaneous lidocaine Fentanyl and Versed per nursing administration record TECHNIQUE: The patient was placed in the prone position. Ultrasound demonstrated a satisfactory path to the left upper/mid pole exophytic solid lesion. The skin of the left back was marked, prepped, draped and anesthetized with 1% lidocaine. With ultrasound guidance, a 16 gauge introducer needle was inserted into the left renal lesion. Subsequently, a single fine needle aspirate was obtained with a 22 gauge needle. At this point, air prevented visualization of the small lesion by ultrasound. CT confirmed satisfactory introducer positioning. Subsequently, a total of 5 core biopsy samples were obtained with an 18 gauge biopsy device and samples were provided to pathology for adequacy check. Gelfoam embolization of the tract was performed and the introducer needle was removed. Sterile bandage was placed. Samples were sent to pathology. The patient tolerated the procedure well.
[2019-04-12 10:36] LABS: BASOPHILS % 0.1 % (0.0-1.0); HEMATOCRIT 44.5 % (34.2-44.1); LYMPHOCYTES # (AUTO) 1.5 (1.0-3.2); LYMPHOCYTES % 16.5 % (18.0-39.1); MEAN CORPUSCULAR HEMOGLOBIN 29.9 pg (28-32); MEAN CORPUSCULAR HGB CONC 33.7 g/dL (31-35); MEAN CORPUSCULAR VOLUME 88.6 fL (81-99); MONOCYTES % 11.3 % (4.4-11.3); NEUTROPHILS # (AUTO) 6.5 (2.1-6.9); NEUTROPHILS % 71.9 % (38.7-80.0); PLATELET COUNT 183 x10e3/uL (140-360); RED BLOOD COUNT 5.02 x10e6/uL (3.6-5.1); RED CELL DISTRIBUTION WIDTH 13.9 % (11.7-14.4)
[2019-04-12 10:47] LABS: BILIRUBIN,URINE NEGATIVE (NEGATIVE); CLARITY,URINE TURBID (CLEAR); COLOR,URINE YELLOW (YELLOW); KETONES,URINE NEGATIVE (NEGATIVE); LEUKOCYTE ESTERASE ,URINE MODERATE (NEGATIVE); NITRITE,URINE NEGATIVE (NEGATIVE); PROTEIN,URINE DIPSTICK 1+ (NEGATIVE); URINE UROBILINOGEN 0.2 mg/dL (0.2 - 1)
--- NOTE | 2019-04-12 10:59 | NUR ---
pt iv in right ac d/c due to pt c/o pain to iv site; re-started in left upper arm 20 g
[2019-04-12 11:05] LABS: AMYLASE 61 U/L (25-125); LIPASE 31 U/L (8-78); RBC,URINE >50 /HPF (0-5); WBC,URINE (MAN) 21-50 /HPF (0-5)
[2019-04-12 11:06] LABS: BACTERIA,URINE MODERATE /HPF; EPITHELIAL CELLS,URINE MODERATE /LPF
[2019-04-12] MEDS ORDERED: DIATRIZOATE MEGL/DIATRIZOA SOD 30 ML BTL PO ONE (11:13)
[2019-04-12 11:28] LABS: INR 0.99; PROTHROMBIN TIME 13.6 seconds (11.9-14.5)
[2019-04-12 11:29] LABS: PARTIAL THROMBOPLASTIN TIME 21.5 seconds (23.8-35.5)
[2019-04-12 11:41] LABS: ALANINE AMINOTRANSFERASE 18 IU/L (0-55); ALBUMIN 3.2 g/dL (3.5-5.0); ALBUMIN/GLOBULIN RATIO 1.1 (0.8-2.0); ALKALINE PHOSPHATASE 42 IU/L (40-150); ANION GAP 12.8 mmol/L (8-16); BLOOD UREA NITROGEN 17 mg/dL (7-26); BUN/CREATININE RATIO 25 (6-25); CALCIUM 8.5 mg/dL (8.4-10.2); CARBON DIOXIDE 24 mmol/L (22-29); CHLORIDE 106 mmol/L (98-107); CREATININE, SERUM 0.69 mg/dL (0.57-1.11); EST GLOMERULAR FILTRATION RATE > 60 ML/MIN (60-); POTASSIUM 3.8 mmol/L (3.5-5.1); SODIUM 139 mmol/L (136-145)
[2019-04-12 11:57] LABS: GLUCOSE 89 mg/dL (74-118)
--- NOTE | 2019-04-12 13:12 | Diagnostic Imaging Report ---
CT Abdomen And Pelvis with Intravenous Contrast INDICATION: ^constipation ^[id number] ^1230 TECHNIQUE: Thin collimation axial images obtained from the diaphragm to the level of the pubic symphysis following the uneventful administration of 100 cc of low osmolar, nonionic intravenous contrast. Dose reduction techniques used: Automated exposure control, adjustment of the mAs and/or kVp according to patient size, standardized low-dose protocol, and/or iterative reconstruction technique. RADIATION DOSE: Total DLP: 692.7 mGy*cm Estimated effective dose: (DLP x 0.015 x size factor) mSv CTDIvol has been reviewed. It is below the limits set by the Radiation Protocol Committee (RPC). COMPARISON: CT chest 09/22/2018. CT abdomen/pelvis from [facility] 02/21/2019 ABDOMEN FINDINGS: Lung Bases: Mass in the anterior left lower lobe is partially imaged and measures approximately 2.4 x 1.2 cm. This is been biopsied. Soft tissue nodule in the posterior right lower lobe measures 9 x 16 mm and is grossly stable. Liver: Steatosis. Stable low attenuating lesion in the dome is stable and suggestive of a cyst. Lobulated low attenuating lesion in the posterior right lobe measures 1.5 x 2.0 cm is stable. No new hepatic lesions. Gallbladder: Present and appears normal. No biliary ductal dilatation. Pancreas: Mild fatty atrophy without mass or ductal dilatation. Spleen: Normal in size. No evidence of mass.. Adrenal Glands: No evidence for mass. Kidneys: Right: Right renal scarring. No mass. Peripelvic cysts are stable. No hydronephrosis. Left: Normal enhancement. Calculus in the upper pole measures 4 mm. There is hyperemia of the mucosa of the renal pelvis. The renal collecting system is mildly patulous. No perinephric inflammation. Low attenuating lesion in the the upper pole is stable. Enhancing lesion in the lateral upper pole on outside CT is no longer visualized. Surgical clips at the hilum of the kidney are stable. Lymph Nodes: No enlarged abdominal or periaortic lymph nodes. Mesenteric lymph nodes are mildly increased in size. There is haziness of the small bowel mesentery which extends into a left abdominal wall hernia Aorta: Normal in diameter and tortuous PELVIS FINDINGS: Bowel: Stomach: Normal. Small Bowel: Enteric contrast present throughout. Multiple small bowel loops are in the lateral left abdominal wall hernia. Large Bowel: There is enteric contrast in the proximal colon. The descending colon is contained within a lateral left abdominal wall hernia. No focal mural thickening or pericolonic inflammation. Diverticulosis coli predominantly of the sigmoid colon without associated inflammation. Moderate burden of stool in the colon terminating in the distal descending colon within the hernia. Appendix: Normal appendix. Bladder: Normal. The uterus is absent. No adnexal mass Peritoneum/retroperitoneum: No free fluid or fluid collection. Bones: Mild degenerative changes of the spine. No focal osseous lesions. Soft tissues: Left lateral wall hernia contains fat, small bowel, and large bowel. There is mild edema of the small bowel mesentery within the hernia sac. The aperture of the hernia is 12.8 cm. There is at the site of the hernia. There is no fluid in the hernia sac IMPRESSION: 1. Moderate stool burden in the large bowel. The transition point is the descending colon as it exits an abdominal wall hernia. No bowel obstruction. 2. Diverticulosis coli. No evidence for bowel obstruction or inflammation. Normal appendix. 3. Hyperemia of the mucosa of the left renal pelvis. Please correlate for signs/symptoms of pyelonephritis. An enhancing soft tissue mass in the upper pole of the left kidney is no longer visualized. Stable left intrarenal calculus without obstructive uropathy. 4. Bilateral pulmonary masses are stable. 5. Low attenuating lesions in the liver are stable and suggestive of cysts. 6. Large left abdominal wall hernia as described above. 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 No fluid in the hernia sac to suggest incarceration. Signed by: Dr. Yao Rasheed MD on 04/12/2019 1:08 PM
[2019-04-12] MEDS: PIPER-TAZ 3.375 GM 50 ML IV SCH ×2 (15:05→21:26)
[2019-04-12 15:52] VITALS: BP 119/68
[2019-04-12 15:55] VITALS: BP 119/68
[2019-04-12 16:01] VITALS: BP 119/68
[2019-04-12 16:06] VITALS: BP 135/70
[2019-04-12] MEDS ORDERED: ALPRAZOLAM0.5 M1 (16:11)
[2019-04-12] MEDS ORDERED: SODIUM CHLORIDE 0.9% 50ML 50 ML ONE (16:13)
[2019-04-12] MEDS ORDERED: IOPAMIDOL 370 MG/ML 200 ML INFUS..BTL INJ ONE (16:14)
[2019-04-12] MEDS ORDERED: PAROXETINE HCL10 MG PO (16:15)
[2019-04-12] MEDS ORDERED: AMLODIPINE BESYL5 MG PO (16:16)
[2019-04-12] MEDS ORDERED: LOVASTATIN40 MG PO (16:17)
[2019-04-12] MEDS ORDERED: pred (16:21)
[2019-04-12 20:00] VITALS: BP 120/59
[2019-04-12 21:00] VITALS: BP 120/59
[2019-04-12] MEDS ORDERED: SODIUM CHLORIDE 0.9% 250ML 250 ML ONE (21:47)
[2019-04-13] VITALS (8 sets, daily range): BP systolic 102–133; BP diastolic 53–62
[2019-04-13] MEDS: PIPER-TAZ 3.375 GM 50 ML IV SCH ×4 (03:30→22:30)
--- NOTE | 2019-04-13 07:00 | NUR ---
Received patient lying in bed with eyes open. Respiration even and unlabored without SOB. Call light in reach.
[2019-04-13] MEDS ORDERED: PEG (High)/E-LYTE SOLN 4,000 ML BTL PO ONE (09:30)
[2019-04-13] MEDS: PAROXETINE HCL 20 MG TAB PO SCH (10:30)
[2019-04-13] MEDS: POLYETHYLENE GLYCOL 3350 17 GM PACK PO SCH ×2 (11:01→18:56)
[2019-04-13] MEDS: AMLODIPINE BESYLATE 5 MG TAB PO SCH (11:02)
[2019-04-13] MEDS: SENNOSIDES 8.6 MG TAB PO SCH ×2 (11:02→18:56)
[2019-04-13] MEDS: ALPRAZOLAM 1 MG TAB PO PRN ×2 (11:15→22:30)
--- NOTE | 2019-04-13 11:44 | History and Physical ---
The patient on observation PRIMARY CARE PHYSICIAN: Dr. Papi Aponte. CHIEF COMPLAINT: Severe constipation for 9 days. HISTORY OF PRESENT ILLNESS: An 78-year-old female, baseline multiple myeloma, received her first dose of chemotherapy last . The patient was also on prednisone 40 prep. She has 9 days of constipation. She has tried everything [id number] and did not work. The patient is otherwise stable. She does have a ventral wall abdominal hernia with no incarceration. The patient is otherwise stable. No abdominal pain, but she does feel that she is constipated. CT scan showed constipation starting on the descending colon. PAST MEDICAL HISTORY: Multiple myeloma on chemotherapy, hypertension, and anxiety disorder. PAST SURGICAL HISTORY: Hysterectomy, multiple kidney surgeries and repair. SOCIAL HISTORY: The patient does not smoke or use alcohol. No regular drugs. ALLERGIES: TO NITROFURANTOIN. HOME MEDICATIONS: List reviewed. REVIEW OF SYSTEMS: As mentioned above. PHYSICAL EXAMINATION: VITAL SIGNS: Temperature is 97, blood pressure 114/53, pulse rate 67, and respirations 18. GENERAL: The patient is not in acute distress. She is awake. HEENT: Normocephalic and atraumatic. She is anicteric. NECK: Supple grossly. PULMONARY: Clear. CARDIOVASCULAR: Regular rate and rhythm. ABDOMEN: Obese. Left side ventral hernia. Reducible. No incarceration. Some discomfort with soft. Positive bowel sounds. NEUROLOGIC: No focal deficit. LABORATORY DATA: Sodium is 139, potassium 3.8, chloride 104, bicarb 24, BUN 17, creatinine 0.9, and glucose 89. WBC is 9, hemoglobin 15, hematocrit 45, and platelets 183. CT scan show severe constipation. IMPRESSION: 1. Abdominal pain associated with constipation/obstipation. 2. Multiple myeloma, getting chemotherapy. PLAN: GoLYTELY. Start the patient on stool softener routinely and MiraLAX as well. Resume home medication. MD SAMAN Kline/ROGER /[id number]
--- NOTE | 2019-04-13 17:30 | NUR ---
Patient reported multiple Bowel movements.
--- NOTE | 2019-04-13 17:56 | NUR ---
PER DAY SHIFT NURSE, KHUSHBOO SMITH HAS HAD MULTIPLE BM'S AFTER GOLYTELY CALL PLACED TO DR ARCEO FOR DISCHARGE ORDERS WITH NO RETURN CALL ESCALATED TO HOUSE MARY PRINGLE TO CALL DR ARCEO FOR DC ORDERS
--- NOTE | 2019-04-13 19:45 | NUR ---
Report given to overnight houseperson. Respiration even and unlabored without SOB. Call light in reach
[2019-04-14 00:33] VITALS: BP 116/47
[2019-04-14] MEDS: PIPER-TAZ 3.375 GM 50 ML IV SCH ×2 (04:08→09:02)
[2019-04-14 05:11] LABS: EOSINOPHILS % 0.5 % (0.0-6.0); HEMATOCRIT 43.4 % (34.2-44.1); HEMOGLOBIN 14.2 g/dL (12.0-16.0); LYMPHOCYTES # (AUTO) 0.9 (1.0-3.2); LYMPHOCYTES % 21.2 % (18.0-39.1); MEAN CORPUSCULAR HEMOGLOBIN 29.6 pg (28-32); MEAN CORPUSCULAR HGB CONC 32.7 g/dL (31-35); MEAN CORPUSCULAR VOLUME 90.4 fL (81-99); MONOCYTES # (AUTO) 0.6 (0.2-0.8); MONOCYTES % 13.4 % (4.4-11.3); NEUTROPHILS # (AUTO) 2.8 (2.1-6.9); NEUTROPHILS % 64.7 % (38.7-80.0); PLATELET COUNT 152 x10e3/uL (140-360); RED CELL DISTRIBUTION WIDTH 14.2 % (11.7-14.4)
[2019-04-14 05:32] LABS: ANION GAP 12.4 mmol/L (8-16); BLOOD UREA NITROGEN 12 mg/dL (7-26); BUN/CREATININE RATIO 17 (6-25); CALCIUM 8.2 mg/dL (8.4-10.2); CARBON DIOXIDE 26 mmol/L (22-29); CHLORIDE 106 mmol/L (98-107); CREATININE, SERUM 0.72 mg/dL (0.57-1.11); EST GLOMERULAR FILTRATION RATE > 60 ML/MIN (60-); GLUCOSE 106 mg/dL (74-118); POTASSIUM 3.4 mmol/L (3.5-5.1); SODIUM 141 mmol/L (136-145)
[2019-04-14 05:56] VITALS: BP 108/55
--- NOTE | 2019-04-14 07:03 | NUR ---
Received patient lying in bed with eyes closed. Family member at bedside. Respiration even and unlabored without SOB.Call light in reach.
[2019-04-14 08:00] VITALS: BP 126/60
[2019-04-14] MEDS ORDERED: ACETAMINOPHEN 325 MG TAB PO PRN (08:45)
[2019-04-14] MEDS: PAROXETINE HCL 20 MG TAB PO SCH (09:03)
[2019-04-14] MEDS: POLYETHYLENE GLYCOL 3350 17 GM PACK PO SCH (09:03)
[2019-04-14] MEDS: AMLODIPINE BESYLATE 5 MG TAB PO SCH (09:03)
[2019-04-14] MEDS: SENNOSIDES 8.6 MG TAB PO SCH (09:04)
[2019-04-14] MEDS ORDERED: ACETAMIN/BUTALBITAL/CAFFEINE TAB PO PRN (09:15)
[2019-04-14 09:44] VITALS: BP 126/60
[2019-04-14] MEDS ORDERED: POTASSIUM CHLORIDE 10MEQ EA PO ONE (10:15)
[2019-04-14] MEDS ORDERED: ACETAMIN/BUTALBITAL/CAFFEINE TAB PO ONE (10:30)
--- NOTE | 2019-04-14 11:55 | NUR ---
PIV to left upper arm discontinued, catheter tip intact, no bleeding noted. Discharge education given. Patient is discharge to home as ordered.
--- NOTE | 2019-04-14 12:10 | NUR ---
Patient is transported via stretcher to private vehicle. All personal belongings are taken by family members.
--- NOTE | 2019-04-15 07:27 | Discharge Summary ---
PRIMARY CARE PHYSICIAN: Dr. Himanshu Hou. The patient was on observation. FINAL DIAGNOSES: 1. Severe constipation. The patient had multiple bowel movements. She is doing much better. 2. Baseline multiple myeloma with initiation treatment on . 3. Migraine headaches, chronically recurrent. 4. Urinary tract infection. HOSPITAL COURSE: The patient did not have any symptoms of urinary tract infection, but she did have chemotherapy. Therefore, we will treat empirically. The patient will take Cipro 250 mg twice a day for 10 days. She had multiple large bowel movements. She is doing much better. The patient is morbidly obese. She has a nonobstructed abdominal hernia on the left side. The descending colon with stool. Discussed with the patient on taking stool softeners on a regular basis instead of as needed. We will give the patient Senna-S one tab twice a day and MiraLAX 17 g twice a day as well. Increase activity. The patient is otherwise stable. For migraine headaches, she will take Fioricet mg one tab q.4 hours as needed for migraine headaches. The patient is otherwise stable, discharged home today. MD SAMAN Kline/ROGER /[id number]
== END 2019-04-14 12:10 | disposition home or self-care (01) ==
LOC: ER 09:52 → ERHOLD 14:38 → MED/SURG2 15:25
PROVIDERS: ADMIT Internal Medicine; ATTEND Internal Medicine
DX: K59.00 Constipation, unspecified (principal); C90.00 Multiple myeloma not having achieved remission; G43.909 Migraine, unspecified, not intractable, without status migrainosus; N39.0 Urinary tract infection, site not specified; E66.01 Morbid (severe) obesity due to excess calories; Z68.34 Body mass index [BMI] 34.0-34.9, adult
CPT/HCPCS: 36415 ×2; 74177; 80048; 80053; 81001; 82150; 82270; 83690; 85025 ×2; 85610; 85730; 93005; 99284; G0378 ×3; J2543 ×3; J7050; Q9967